=== PATIENT | female | born 1940 | race Caucasian/White ===

== ENCOUNTER → 2017-09-26 | Outpatient (CLI) | payer MEDICARE, OTHER ==
[2017-09-26 09:53] LABS: BASO # 0.1 10^3/uL (0.0-0.2); BASO % 0.8 % (0.0-1.0); EOS # 0.2 10^3/uL (0.0-0.50); HEMATOCRIT 42.4 % (36.0-47.0); IMMATURE GRANULOCYTE % 0.3 % (0-3.0); LYMPH # 2.1 10^3/uL (1.5-4.5); LYMPH % 33.9 % (24.0-44.0); MEAN CORPUSCULAR HEMOGLOBIN 29.6 pg (27.0-33.0); MEAN CORPUSCULAR VOLUME 89.6 fl (80.0-96.0); MONO # 0.6 10^3/uL (0.0-0.8); MONO % 10.1 % (0.0-5.0); NEUTROPHILS # 3.1 10^3/uL (1.8-7.7); NEUTROPHILS % 51.9 % (36.0-66.0); PLATELET COUNT, AUTOMATED 269 10^3/uL (150-450); RED BLOOD COUNT 4.73 10^6/uL (4.00-5.40); RED CELL DISTRIBUTION WIDTH 12.9 % (11.5-14.5); WHITE BLOOD COUNT 6.1 10^3/uL (4.0-10.0)
[2017-09-26 10:28] LABS: FREE T4 1.25 NG/DL (0.76-1.46); THYROID STIMULATING HORMONE 0.516 uIU/ML (0.358-3.740)
[2017-09-27 14:14] LABS: ANTINUCLEAR ANTIBODIES DIRECT Negative (Negative)
== END ==
LOC: M LAB 08:53
DX: L80 Vitiligo (principal)
CPT/HCPCS: 84443

== ENCOUNTER → 2018-01-03 | Outpatient (CLI) | payer MEDICARE, OTHER | LOC: M RAD 09:29 | DX: Z12.31 Encounter for screening mammogram for malignant neoplasm of breast (principal); N60.31 Fibrosclerosis of right breast; N60.32 Fibrosclerosis of left breast | CPT/HCPCS: 77067 ==

== ENCOUNTER 2018-03-08 08:37 | Day surgery (SDC) | payer MEDICARE, OTHER ==
[~2018-03-08] VITALS: Ht 154.9 cm; Wt 61.2 kg
[~2018-03-08 08:37] MED LIST: BALANCED SALT IRRIGATION SOLUTION 500ML BAG (FOR OR EYE MACHINE) As Ordered ONE; CA PO; CEFUROXIME 1MG/0.1ML INTRACAMERAL INJ As Ordered ONE; CIPR500T89 PO; CYCLOPENTOLATE 2% OPHTH SOLN 2ML BTL OD ONE; FIBER PO; FLAG500T PO; HEALON DUET PRO(HEALON 10MG/ML 0.55ML & HEALON ENDOCOAT 30MG/ML 0.85ML) As Ordered ONE; LEVO75TA4 PO; LIDOCAINE 1% SDV 5 ML VIAL As Ordered ONE; LIDOCAINE 3.5 % 1ML OPHTH TOPICAL GEL OU ONE; LIPI20TA PO; LISI-542 PO; OFLOXACIN 0.3 % (OCUFLOX) OPTH SOL 5ML OD ONE; PHENYLEPHRINE 2.5% OPHTH SOL 2ML OD ONE; PHENYLEPHRINE HCL 10 % OPHTH. SOL 5ML OD PRN; POVIDONE-IODINE 5% OPHTH PREP SOL 30ML As Ordered ONE; SIMV20TA2 PO; SYNT75TA PO; TROPICAMIDE 1% OPHTH SOLN 2ML OD ONE; VAGI10TA VA; VIT D PO; VIT K PO; [UNRECOGNIZED DRUG - OTHER]; [UNRECOGNIZED DRUG - OTHER] PO; [UNRECOGNIZED DRUG - OTHER] PO
[2018-03-08 11:00] VITALS: BP 145/63
[2018-03-08] MEDS ORDERED: MIDAZOLAM INJ 2 MG/2 ML VIAL (J2250) As Ordered ONE (12:20)
[2018-03-08] MEDS ORDERED: fentaNYL 100 MCG/2 ML INJECTION (J3010) As Ordered ONE (12:20)
--- NOTE | 2018-03-09 08:17 | RO ---
DATE OF PROCEDURE: 03/08/2018 PREPROCEDURE DIAGNOSIS: Age-related nuclear cataract, right eye. POSTPROCEDURE DIAGNOSIS: Age-related nuclear cataract, right eye. PROCEDURE PERFORMED: Femtosecond cataract extraction with posterior chamber intraocular lens implantation and Optiwave Refractive Analysis (ORA). Lens used was an AU00T0, 16.5 diopter. SURGEON: Eloisa Huffman MD [facility] ARCHITECT: ANESTHESIA: Topical with sedation. DESCRIPTION OF PROCEDURE: Patient was prepped and draped in usual fashion. A lid speculum was placed between the lids. The eye was fixated. A stab incision was made into the anterior chamber. 1% nonpreserved lidocaine was instilled. Then viscoelastic was instilled. The main incision was then opened with the incision bacteriology teacher, and the anterior capsulorrhexis was removed, was performed by the laser. The lens was then rocked to remove any gas from behind it, and then it was freely movable in the capsular bag. The phacoemulsification unit was used to groove the nucleus in two meridians. The nucleus was cracked into four quadrants. Each quadrant was removed with the phacoemulsification unit. Any remaining cortex was removed with the irrigation and aspiration (I and A) unit. The capsular bag was refilled with viscoelastic, and then the intraocular pressure measured and found to be adequate for ORA. The ORA was lowered into place, focused on the apex of the cornea, and aligned to the patient. Readings were made, and an appropriate intraocular lens was chosen from the data generated by the ORA. The lens was then injected into the eye with its rn intern and into the capsular bag. It was in great position. Any remaining viscoelastic was removed with the I and A unit. The wound was then hydrated, and balanced salt solution (BSS) and cefuroxime were instilled. Patient tolerated this procedure well and went to recovery room in stable condition.
== END 2018-03-08 11:24 | disposition home or self-care (01) ==
LOC: M SDC 08:37
PROVIDERS: ATTEND Ophthalmology
DX: H25.11 Age-related nuclear cataract, right eye (principal); I10 Essential (primary) hypertension; E78.5 Hyperlipidemia, unspecified; E03.9 Hypothyroidism, unspecified; Z79.899 Other long term (current) drug therapy
CPT/HCPCS: 66984; J2250; J3010; V2632

== ENCOUNTER 2018-05-31 08:48 | Day surgery (SDC) | payer MEDICARE, OTHER ==
[~2018-05-31] VITALS: Ht 154.9 cm; Wt 61.2 kg
[~2018-05-31 08:48] MED LIST changes: +ACETAMINOPHEN 325 MG TAB PO PRN; -CEFUROXIME 1MG/0.1ML INTRACAMERAL INJ As Ordered ONE; +COQ-400C PO; -CYCLOPENTOLATE 2% OPHTH SOLN 2ML BTL OD ONE; +CYCLOPENTOLATE 2% OPHTH SOLN 2ML BTL OS ONE; -OFLOXACIN 0.3 % (OCUFLOX) OPTH SOL 5ML OD ONE; +OFLOXACIN 0.3 % (OCUFLOX) OPTH SOL 5ML OS ONE; -PHENYLEPHRINE 2.5% OPHTH SOL 2ML OD ONE; +PHENYLEPHRINE 2.5% OPHTH SOL 2ML OS ONE; -PHENYLEPHRINE HCL 10 % OPHTH. SOL 5ML OD PRN; +PHENYLEPHRINE HCL 10 % OPHTH. SOL 5ML OS PRN; +PROPARACAINE 0.5% OPHTH SOL 15ML OS PRN; -TROPICAMIDE 1% OPHTH SOLN 2ML OD ONE; +TROPICAMIDE 1% OPHTH SOLN 2ML OS ONE; +VITA200015 PO; +VITA500T3 PO
[2018-05-31] MEDS ORDERED: CEFUROXIME 1MG/0.1ML INTRACAMERAL INJ As Ordered ONE (10:51)
[2018-05-31] MEDS ORDERED: MIDAZOLAM INJ 2 MG/2 ML VIAL (J2250) As Ordered ONE (11:00)
[2018-05-31] MEDS ORDERED: fentaNYL 100 MCG/2 ML INJECTION (J3010) As Ordered ONE (11:00)
[2018-05-31] MEDS ORDERED: AcetaZOLAMIDE 500 MG ER CAP As Ordered ONE (11:32)
[2018-05-31 11:35] VITALS: BP 118/76
[2018-05-31] MEDS ORDERED: TRIMETHOBENZAMIDE 300 MG CAP PO PRN (11:45)
[2018-05-31] MEDS ORDERED: AcetaZOLAMIDE 500 MG ER CAP PO ONE (11:45)
[2018-05-31] MEDS ORDERED: KETOROLAC 0.5% OPHTH SOLN OS ONE (11:45)
--- NOTE | 2018-05-31 11:51 | RO ---
DATE OF PROCEDURE: 05/31/2018 PREPROCEDURE DIAGNOSES: Age related nuclear cataract and astigmatism, left eye. POSTPROCEDURE DIAGNOSES: Age related nuclear cataract and astigmatism, left eye. PROCEDURE PERFORMED: Phacoemulsification with posterior chamber intraocular lens implantation with use of ORA. Lens used was an AU00T0, 16.5 diopters. SURGEON: Eloisa Huffman MD SERVICE EMPLOYEE: ANESTHESIA: Topical with sedation. DESCRIPTION OF PROCEDURE: Patient was prepped and draped in usual fashion. A lid speculum was placed between the lids. The eye was fixated. A stab incision was made into the anterior chamber. 1% nonpreserved lidocaine was instilled. Then viscoelastic was instilled. The main incision was then opened with the incision soldering machine operator automatic, and the anterior capsulorrhexis was removed, was performed by the laser. The lens was then rocked to remove any gas from behind it, and then it was freely movable in the capsular bag. The phacoemulsification unit was used to groove the nucleus in two meridians. The nucleus was cracked into four quadrants. Each quadrant was removed with the phacoemulsification unit. Any remaining cortex was removed with the irrigation and aspiration (I and A) unit. The capsular bag was refilled with viscoelastic, and then the intraocular pressure measured and found to be adequate for ORA. The ORA was lowered into place, focused on the apex of the cornea, and aligned to the patient. Readings were made, and an appropriate intraocular lens was chosen from the data generated by the ORA. The lens was then injected into the eye with its pick pack worker and into the capsular bag. It was in great position. Any remaining viscoelastic was removed with the I and A unit. The wound was then hydrated, and balanced salt solution (BSS) and cefuroxime were instilled. Patient tolerated this procedure well and went to recovery room in stable condition.
== END 2018-05-31 11:48 | disposition home or self-care (01) ==
LOC: M SDC 08:48
PROVIDERS: ATTEND Ophthalmology
DX: H25.12 Age-related nuclear cataract, left eye (principal); H52.202 Unspecified astigmatism, left eye; I34.1 Nonrheumatic mitral (valve) prolapse; E78.5 Hyperlipidemia, unspecified; I10 Essential (primary) hypertension; K21.9 Gastro-esophageal reflux disease without esophagitis; Z79.899 Other long term (current) drug therapy
CPT/HCPCS: 66984; 92015; J2250; J3010; V2632

== ENCOUNTER 2018-08-29 09:05 | Emergency (ER) | payer MEDICARE, OTHER ==
[~2018-08-29] VITALS: Ht 157.5 cm; Wt 61.4 kg
[~2018-08-29 09:05] MED LIST changes: -ACETAMINOPHEN 325 MG TAB PO PRN; -BALANCED SALT IRRIGATION SOLUTION 500ML BAG (FOR OR EYE MACHINE) As Ordered ONE; +CYAN500T8 PO; -CYCLOPENTOLATE 2% OPHTH SOLN 2ML BTL OS ONE; -HEALON DUET PRO(HEALON 10MG/ML 0.55ML & HEALON ENDOCOAT 30MG/ML 0.85ML) As Ordered ONE; -LIDOCAINE 1% SDV 5 ML VIAL As Ordered ONE; -LIDOCAINE 3.5 % 1ML OPHTH TOPICAL GEL OU ONE; -OFLOXACIN 0.3 % (OCUFLOX) OPTH SOL 5ML OS ONE; -PHENYLEPHRINE 2.5% OPHTH SOL 2ML OS ONE; -PHENYLEPHRINE HCL 10 % OPHTH. SOL 5ML OS PRN; -POVIDONE-IODINE 5% OPHTH PREP SOL 30ML As Ordered ONE; -PROPARACAINE 0.5% OPHTH SOL 15ML OS PRN; -TROPICAMIDE 1% OPHTH SOLN 2ML OS ONE; -VITA500T3 PO
[2018-08-29] MEDS ORDERED: ONDANSETRON 4MG/2ML VIAL (J2405) IV ONE (10:15)
[2018-08-29] MEDS ORDERED: NS 1,000 ML IV ONE (10:15)
[2018-08-29] MEDS ORDERED: MORPHINE 2 MG/ML 1ML SYRINGE (J2270) IV ONE (10:15)
[2018-08-29 10:53] LABS: BASO % 0.6 % (0.0-1.0); EOS # 0.1 10^3/uL (0.0-0.50); EOS % 1.9 % (0.0-3.0); HEMATOCRIT 42.6 % (36.0-47.0); HEMOGLOBIN 13.9 g/dl (12.0-15.5); LYMPH # 1.8 10^3/uL (1.5-4.5); LYMPH % 28.1 % (24.0-44.0); MEAN CORPUSCULAR HEMOGLOBIN 30.3 pg (27.0-33.0); MEAN CORPUSCULAR HGB CONC 32.6 g/dl (32.0-36.5); MONO # 0.5 10^3/uL (0.0-0.8); MONO % 8.1 % (0.0-5.0); NEUTROPHILS # 3.9 10^3/uL (1.8-7.7); PLATELET COUNT, AUTOMATED 275 10^3/uL (150-450); RED BLOOD COUNT 4.58 10^6/uL (4.00-5.40); WHITE BLOOD COUNT 6.4 10^3/uL (4.0-10.0)
[2018-08-29 11:03] LABS: INR 0.92; PROTHROMBIN TIME 12.1 SECONDS (11.8-14.0)
[2018-08-29 11:04] LABS: PARTIAL THROMBOPLASTIN TIME 29.7 SECONDS (25.0-38.4)
[2018-08-29 11:21] LABS: ALBUMIN 3.6 GM/DL (3.2-5.2); ALT/SGPT 28 U/L (12-78); BILIRUBIN,DIRECT 0.2 MG/DL (0.0-0.2); BILIRUBIN,TOTAL 0.5 MG/DL (0.2-1.0); BLOOD UREA NITROGEN 16 MG/DL (7-18); CALCIUM LEVEL 8.3 MG/DL (8.8-10.2); CARBON DIOXIDE LEVEL 25 MEQ/L (21-32); CHLORIDE LEVEL 110 MEQ/L (98-107); GLOMERULAR FILTRATION RATE > 60.0 (>39); GLUCOSE, FASTING 92 MG/DL (70-100); LIPASE 261 U/L (73-393); POTASSIUM SERUM 4.1 MEQ/L (3.5-5.1); SODIUM LEVEL 143 MEQ/L (136-145); TOTAL PROTEIN 6.9 GM/DL (6.4-8.2)
[2018-08-29] MEDS ORDERED: ISOVUE-370 76% 100ML VIAL (Q9967) As Ordered ONE (11:28)
[2018-08-29 12:20] VITALS: BP 140/64
--- NOTE | 2018-08-29 12:28 | REP ---
CT ABDOMEN/PELVIS WITH IV CONTRAST: TECHNIQUE: Axial contrast enhanced images from the lung bases to the pubic symphysis using 100 mL Isovue 370 intravenous contrast material with multiplanar reformations. Visualized lung bases demonstrate interstitial fibrotic change with multiple calcified granulomas. There are several scattered subcentimeter cysts in the liver. The spleen is unremarkable. The adrenal glands are diffusely thickened bilaterally. No pancreatic mass is seen. The kidneys are unremarkable with no hydronephrosis. There are atherosclerotic calcifications of the abdominal aorta without aneurysm. There is no adenopathy. There is no free air or free fluid. Scattered diverticula are seen throughout the colon. There is a suggestion of mild thickening of the right transverse colon with surrounding inflammatory stranding of the pericolonic fat. The findings suggest mild colitis and probably diverticulitis. There is no evidence of appendicitis. The uterus is deviated to the right of midline. No pelvic mass is seen. The urinary bladder is mildly distended and grossly unremarkable. IMPRESSION: Findings suggesting mild colitis of the right transverse colon, likely representing mild diverticulitis. No free air or free fluid. No evidence of appendicitis. Electronically Signed by Jonh Paredes MD 08/30/2018 10:52 A
[2018-08-29] MEDS ORDERED: FLAG500T PO (12:44)
[2018-08-29] MEDS ORDERED: CIPR-249 PO (12:44)
[2018-08-29] MEDS ORDERED: metroNIDAZOLE (FLAGYL) 500 MG TAB PO ONE (12:45)
[2018-08-29] MEDS ORDERED: CIPROFLOXACIN 500 MG TAB PO ONE (12:45)
== END 2018-08-29 12:54 | disposition home or self-care (01) ==
LOC: M ED 09:05
DX: K57.90 Diverticulosis of intestine, part unspecified, without perforation or abscess without bleeding (principal); I10 Essential (primary) hypertension; K21.9 Gastro-esophageal reflux disease without esophagitis; E03.9 Hypothyroidism, unspecified; Z79.899 Other long term (current) drug therapy; Z79.890 Hormone replacement therapy
CPT/HCPCS: 74177; 80048; 80076; 83605; 83690; 85025; 85610; 85730; 96361; 96374; 96375; 99284; J2270; J2405; Q9967

== ENCOUNTER → 2020-12-18 | Outpatient (CLI) | payer MEDICARE, OTHER ==
[~2020-12-18] MED LIST changes: +CIPR-249 PO; +CYAN500T14 PO; -CYAN500T8 PO; -LISI-542 PO; +LISI-898 PO
[2020-12-18 08:59] LABS: BLOOD UREA NITROGEN 18 MG/DL (7-18); CALCIUM LEVEL 8.9 MG/DL (8.8-10.2); CARBON DIOXIDE LEVEL 28 MEQ/L (21-32); CHLORIDE LEVEL 111 MEQ/L (98-107); CREATININE FOR GFR 0.88 MG/DL (0.55-1.30); GLOMERULAR FILTRATION RATE > 60.0 (>39); GLUCOSE, FASTING 88 MG/DL (70-100); POTASSIUM SERUM 4.1 MEQ/L (3.5-5.1); SODIUM LEVEL 143 MEQ/L (136-145)
== END ==
LOC: M LAB 07:53
DX: R56.9 Unspecified convulsions (principal)

== ENCOUNTER → 2020-12-24 | Outpatient (CLI) | payer MEDICARE, OTHER ==
[~2020-12-24] MED LIST changes: +PROHANCE 279.3MG/ML 15ML VIAL As Ordered ONE
--- NOTE | 2020-12-25 11:02 | REPVR ---
PROCEDURE INFORMATION: Exam: MR Head Without and With Contrast Exam date and time: 12/24/2020 4:48 PM Age: 80 years old Clinical indication: Other: Seizure; Additional info: Seizures TECHNIQUE: Imaging protocol: MR of the head without and with intravenous contrast. Contrast material: PROHANCE; Contrast volume: 12 ml; Contrast route: INTRAVENOUS (IV); COMPARISON: No relevant prior studies available. FINDINGS: Brain: The ventricles and sulci are proportionally enlarged, consistent with age related volume loss / atrophy. Hippocampi appear symmetric in size and signal intensity without evidence of mesial temporal sclerosis. There is no abnormal leptomeningeal or parenchymal contrast enhancement. There is T2 prolongation in the cerebral white matter, consistent with microvascular disease. Paredes white differentiation is intact. Diffusion weighted images show no restricted diffusion or evidence of acute infarct. There is no mass effect or midline shift. There is no acute intracranial hemorrhage. There are no extra-axial fluid collections. Cerebral ventricles: Normal. No ventriculomegaly. Bones/joints: Benign hyperostosis frontalis is present. Normal marrow signal in visualized bones. Paranasal sinuses: There is no significant mucosal thickening in paranasal sinuses. No air-fluid levels. Mastoid air cells: No significant mastoid effusion. Orbital cavity: There have been bilateral intraocular lens replacements likely related to cataract surgery. Soft tissues: Unremarkable as visualized. Other vasculature: Flow voids in main vascular structures are visualized. IMPRESSION: 1. No evidence of acute intracranial abnormality. No evidence of acute infarction, hemorrhage, or mass. 2. Atrophy and microvascular disease. Electronically signed by: Leonarda Abarca On 12/25/2020 11:02:26 AM
== END ==
LOC: M RAD 16:03
DX: R56.9 Unspecified convulsions (principal)
CPT/HCPCS: 70553; A9576

== ENCOUNTER 2022-09-03 10:30 | Emergency (ER) | payer MEDICARE, OTHER ==
[~2022-09-03] VITALS: Ht 154.9 cm; Wt 60.9 kg
[~2022-09-03 10:30] MED LIST changes: -LISI-898 PO; +LISI5TAB11 PO; -PROHANCE 279.3MG/ML 15ML VIAL As Ordered ONE
[2022-09-03] MEDS ORDERED: MED REC IN PROGRESS XX SCH (13:10)
[2022-09-03 13:19] VITALS: TEMP 97.7
[2022-09-03 13:40] LABS: BASO % 0.4 % (0.0-1.0); EOS # 0.1 10^3/uL (0.0-0.5); EOS % 1.3 % (0.0-3.0); HEMATOCRIT 36.9 % (36.0-47.0); HEMOGLOBIN 12.1 g/dl (12.0-15.5); LYMPH # 0.5 10^3/uL (1.5-5.0); LYMPH % 5.5 % (24.0-44.0); MEAN CORPUSCULAR HEMOGLOBIN 31.2 pg (27.0-33.0); MEAN CORPUSCULAR HGB CONC 32.8 g/dl (32.0-36.5); MEAN CORPUSCULAR VOLUME 95.1 fl (80.0-96.0); MONO # 0.3 10^3/uL (0.0-0.8); MONO % 3.9 % (2.0-8.0); NEUTROPHILS # 7.1 10^3/uL (1.5-8.5); NEUTROPHILS % 84.4 % (36.0-66.0); PLATELET COUNT, AUTOMATED 190 10^3/uL (150-450); RED BLOOD COUNT 3.88 10^6/uL (4.00-5.40); WHITE BLOOD COUNT 8.4 10^3/uL (4.0-10.0)
[2022-09-03 13:58] LABS: PARTIAL THROMBOPLASTIN TIME 22.4 SECONDS (24.8-34.2)
[2022-09-03 14:01] LABS: INR 0.93; PROTHROMBIN TIME 12.7 SECONDS (12.5-14.5)
[2022-09-03] MEDS ORDERED: MED REC CURRENTLY UNOBTAINABLE XX SCH (14:20)
[2022-09-03 14:22] LABS: CK-MB VALUE MASS 1.3 NG/ML (<3.6)
[2022-09-03 14:23] LABS: RSV AMPLIFICATION NEGATIVE (NEGATIVE)
[2022-09-03 14:23] LABS: ALBUMIN 2.8 G/DL (3.2-5.2); BILIRUBIN,DIRECT 0.2 MG/DL (<0.4); BILIRUBIN,TOTAL 0.8 MG/DL (0.3-1.2); TOTAL PROTEIN 5.4 G/DL (5.7-8.2)
[2022-09-03 14:27] LABS: FREE T4 1.74 NG/DL (0.89-1.76); THYROID STIMULATING HORMONE 1.195 uIU/ML (0.55-4.78)
[2022-09-03 14:29] LABS: BLOOD UREA NITROGEN 13 MG/DL (9-23); CALCIUM LEVEL 7.9 MG/DL (8.3-10.6); CARBON DIOXIDE LEVEL > 40.0 MMOL/L (20-31); CHLORIDE LEVEL 96 MMOL/L (98-107); CPK CREATINE PHOSPHOKINASE 66 U/L (34-145); CREATININE FOR GFR 0.67 MG/DL (0.55-1.30); GLOMERULAR FILTRATION RATE > 60.0 (>32); GLUCOSE, FASTING 178 MG/DL (74-106); MB/CK RELATIVE INDEX 1.96 (< OR =4); POTASSIUM SERUM 2.9 MMOL/L (3.5-5.1); SODIUM LEVEL 144 MMOL/L (136-145)
[2022-09-03] MEDS ORDERED: KCL 10MEQ/100ML SWI (KRUN) 10 MEQ in IV 1 EA IV ONE (14:35)
[2022-09-03] MEDS ORDERED: POTASSIUM CHLORIDE 10MEQ SR TABLET PO ONE (14:35)
[2022-09-03 15:16] LABS: CK-MB VALUE MASS < 1.0 NG/ML (<3.6); CPK CREATINE PHOSPHOKINASE 61 U/L (34-145); MB/CK RELATIVE INDEX 1.63 (< OR =4)
[2022-09-03] MEDS ORDERED: VITMTA PO (15:16)
[2022-09-03] MEDS ORDERED: LEVE750T5 PO (15:16)
[2022-09-03] MEDS ORDERED: SYNT50TA PO (15:16)
[2022-09-03] MEDS ORDERED: SPIR-10 PO (15:16)
[2022-09-03] MEDS ORDERED: LACO150T PO (15:16)
[2022-09-03] MEDS ORDERED: CLON0.2T PO (15:16)
[2022-09-03] MEDS ORDERED: TORS20TA2 PO (15:16)
[2022-09-03] MEDS ORDERED: LISI40TA4 PO (15:16)
[2022-09-03] MEDS ORDERED: BACI1CAP PO (15:16)
[2022-09-03] MEDS ORDERED: LABE20TAB PO (15:16)
[2022-09-03] MEDS ORDERED: HOME MED LIST COMPLETE! XX SCH (15:20)
[2022-09-03] MEDS ORDERED: LABETALOL 200 MG TAB PO ONE (17:20)
[2022-09-03 18:11] VITALS: BP 201/86
[2022-09-03] MEDS ORDERED: LABETALOL 100MG/20ML VIAL IV STA (18:21)
[2022-09-03 19:46] VITALS: BP 176/81
[2022-09-03 19:48] VITALS: O2SAT 86
== END 2022-09-03 20:14 | disposition short-term general hospital (02) ==
LOC: M ED 10:30
DX: I67.83 Posterior reversible encephalopathy syndrome (principal); I10 Essential (primary) hypertension; E78.5 Hyperlipidemia, unspecified; K21.9 Gastro-esophageal reflux disease without esophagitis; E03.9 Hypothyroidism, unspecified; R56.9 Unspecified convulsions; Z85.3 Personal history of malignant neoplasm of breast; N28.89 Other specified disorders of kidney and ureter; Z79.899 Other long term (current) drug therapy

== ENCOUNTER → 2023-03-28 | Outpatient (REF) ==
[~2023-03-28] MED LIST changes: +BACI1CAP PO; +CLON0.2T PO; +LABE20TAB PO; +LACO150T PO; +LEVE750T5 PO; +LISI40TA4 PO; +SPIR-10 PO; +SYNT50TA PO; +TORS20TA2 PO; +VITMTA PO
[2023-03-28 17:53] LABS: INFLUENZA A AMPLIFICATION NEGATIVE (NEGATIVE); INFLUENZA B AMPLIFICATION NEGATIVE (NEGATIVE)
== END ==
PROVIDERS: ATTEND Physician Assistant
DX: R41.82 Altered mental status, unspecified (principal)

== ENCOUNTER → 2023-05-11 | Outpatient (REF) | payer MEDICARE, OTHER | PROVIDERS: ATTEND Physician Assistant | DX: G40.909 Epilepsy, unspecified, not intractable, without status epilepticus (principal); Z79.899 Other long term (current) drug therapy ==

== ENCOUNTER → 2023-06-17 | Outpatient (REF) | payer MEDICARE, OTHER | PROVIDERS: ATTEND Physician Assistant | DX: N39.0 Urinary tract infection, site not specified (principal) ==

== ENCOUNTER → 2023-06-27 | Outpatient (REF) | payer MEDICARE, OTHER | PROVIDERS: ATTEND Physician Assistant | DX: R05.9 Cough, unspecified (principal) ==

== ENCOUNTER → 2023-10-26 | Outpatient (REF) | payer MEDICARE, OTHER | PROVIDERS: ATTEND Internal Medicine | DX: E03.9 Hypothyroidism, unspecified (principal); Z79.899 Other long term (current) drug therapy ==

== ENCOUNTER → 2023-11-01 | Outpatient (REF) | payer MEDICARE, OTHER ==
[2023-11-01 13:56] LABS: HEMATOCRIT 40.2 % (36.0-47.0); HEMOGLOBIN 12.8 g/dl (12.0-15.5); MEAN CORPUSCULAR HEMOGLOBIN 30.3 pg (27.0-33.0); MEAN CORPUSCULAR HGB CONC 31.8 g/dl (32.0-36.5); MEAN CORPUSCULAR VOLUME 95.3 fl (80.0-96.0); PLATELET COUNT, AUTOMATED 284 10^3/uL (150-450); RED BLOOD COUNT 4.22 10^6/uL (4.00-5.40); WHITE BLOOD COUNT 6.6 10^3/uL (4.0-10.0)
[2023-11-01 14:28] LABS: BLOOD UREA NITROGEN 14 MG/DL (9-23); CALCIUM LEVEL 8.9 MG/DL (8.3-10.6); CARBON DIOXIDE LEVEL 27 MMOL/L (20-31); CHLORIDE LEVEL 109 MMOL/L (98-107); CREATININE FOR GFR 0.83 MG/DL (0.55-1.30); GLOMERULAR FILTRATION RATE > 60.0 (>32); GLUCOSE, FASTING 80 MG/DL (74-106); POTASSIUM SERUM 4.8 MMOL/L (3.5-5.1); SODIUM LEVEL 142 MMOL/L (136-145)
== END ==
PROVIDERS: ATTEND Physician Assistant
DX: U07.1 COVID-19 (principal); Z79.899 Other long term (current) drug therapy

== ENCOUNTER → 2024-01-25 | Outpatient (REF) | payer MEDICARE, OTHER ==
[2024-01-25 15:37] LABS: HEMATOCRIT 39.6 % (36.0-47.0); HEMOGLOBIN 12.6 g/dl (12.0-15.5); MEAN CORPUSCULAR HEMOGLOBIN 30.4 pg (27.0-33.0); MEAN CORPUSCULAR HGB CONC 31.8 g/dl (32.0-36.5); MEAN CORPUSCULAR VOLUME 95.4 fl (80.0-96.0); PLATELET COUNT, AUTOMATED 292 10^3/uL (150-450); RED BLOOD COUNT 4.15 10^6/uL (4.00-5.40); WHITE BLOOD COUNT 7.9 10^3/uL (4.0-10.0)
[2024-01-25 16:01] LABS: BLOOD UREA NITROGEN 20 MG/DL (9-23); CARBON DIOXIDE LEVEL 26 MMOL/L (20-31); CHLORIDE LEVEL 110 MMOL/L (98-107); CREATININE FOR GFR 0.93 MG/DL (0.55-1.30); GLOMERULAR FILTRATION RATE > 60.0 (>32); GLUCOSE, FASTING 91 MG/DL (74-106); POTASSIUM SERUM 4.5 MMOL/L (3.5-5.1); SODIUM LEVEL 144 MMOL/L (136-145)
== END ==
PROVIDERS: ATTEND Physician Assistant
DX: R56.9 Unspecified convulsions (principal); Z79.899 Other long term (current) drug therapy

== ENCOUNTER → 2024-05-17 | Outpatient (CLI) | payer MEDICARE, OTHER | LOC: M WHC 14:17 | PROVIDERS: ATTEND Internal Medicine | DX: Z12.31 Encounter for screening mammogram for malignant neoplasm of breast (principal) ==

== ENCOUNTER → 2024-09-26 | Outpatient (CLI) | payer MEDICARE, OTHER ==
[~2024-09-26] MED LIST changes: +LISI40TA10 PO; -LISI40TA4 PO
== END ==
LOC: M WHC 10:43
PROVIDERS: ATTEND Internal Medicine
DX: N60.02 Solitary cyst of left breast (principal); Z85.3 Personal history of malignant neoplasm of breast